=== PATIENT | female | born 2000 | race African-American/Black ===

== ENCOUNTER 2023-10-28 14:53 | Emergency (ER) | payer BC, OTHER, SELFPAY ==
[2023-10-28 14:55] VITALS: BP 122/71; PULSE 98; RESP 20; TEMP 36.2; O2SAT 100
--- NOTE | 2023-10-28 15:46 | ED.SKABFB ---
HPI - Skin/Abscess/Foreign Bdy General Chief complaint: Skin/Abscess/Foreign Body Stated complaint: eczema on face Time Seen by Provider: 10/28/23 15:07 Source: patient Mode of arrival: ambulatory Limitations: no limitations History of Present Illness HPI narrative: This is a 22 year old female that presents to the ER for eczema. Reports she woke up this morning with a flare on her face and is very uncomfortable and itchy. She sees a Motorboat Operator at [facility]. Is currently on Dupixent. No new soaps, lotions, detergents, or medications. Related Data Allergies Allergy/AdvReac Type Severity Reaction Status Date / Time No Known Allergies Allergy Verified 10/28/23 14:58 Review of Systems Review of Systems: CONSTITUTIONAL: Denies fever SKIN: Reports rash and itching. All systems reviewed & are unremarkable except as noted in HPI and below PMFSH Past Medical History Medical History (Updated 10/28/23 @ 16:12 by Valerie Cedillo PA-C) History of eczema Social History Social History (Updated 10/28/23 @ 16:12 by Valerie Cedillo PA-C) Substance use: never Exam Narrative: GENERAL: Well-appearing, well-nourished, and in no acute distress. HEAD: Normocephalic, atraumatic. EYES: EOMI. ENT: Mucous membranes moist. Oropharynx without tonsillar hypertrophy exudate or other lesions. NECK: Supple. No adenopathy or masses CHEST: No respiratory distress. HEART: Regular rate EXTREMITIES: Normal range of motion. No edema. SKIN: Warm, dry. Dry scaly rash to the face with mild inflammation NEURO: No focal deficits. Alert and oriented x3. PSYCH: Normal mood and affect Course Consultations Consultation #1: Spoke with patient's Motorboat Operator oncology technician, Dr. Qureshi, about patient. Recommends Elidel to the face and systemic antihistamines Date: 10/28/23 Vital Signs Vital signs: Vital Signs Temperature 97.2 F L 10/28/23 14:55 Pulse Rate 98 10/28/23 14:55 Respiratory Rate 20 10/28/23 14:55 Blood Pressure 122/71 10/28/23 14:55 Pulse Oximetry 100 10/28/23 14:55 Oxygen Delivery Room Air 10/28/23 14:55 Temperature 97.2 F L 10/28/23 14:55 Pulse Rate 98 10/28/23 14:55 Respiratory Rate 20 10/28/23 14:55 Blood Pressure 122/71 10/28/23 14:55 Pulse Oximetry 100 10/28/23 14:55 Oxygen Delivery Room Air 10/28/23 14:55 MDM - Skin/Abscess/Foreign Bdy MDM Narrative Medical decision making narrative: Patient presents to the ER for Eczema flare. Spoke with patient's Motorboat Operator oncology technician, Dr. Qureshi, about patient. Recommends Elidel to the face and systemic antihistamines. She is to follow up at her scheduled appointment next week for her injection. She was given warnings to return to the ER Differential Diagnosis Differential diagnosis: Likely urticaria, cellulitis and eczema Critical Care Time Critical Care Time Critical Care Time: No Discharge Plan Discharge Clinical Impression: Eczema Qualifiers: Eczema type: unspecified Qualified Code(s): L30.9 - Dermatitis, unspecified Patient Disposition: Home, Self-Care Condition: Stable Instructions: Eczema (ED) Additional Instructions: Return to the emergency department if you experience fever >101, trouble breathing, or any other symptoms that are concerning to you Take a Pepcid and Zyrtec daily. Benadryl as needed for severe itching. Apply Elidel as prescribed Follow-up with your Motorboat Operator. They recommended holding off on systemic steroids at this time and trying antihistamines and the Elidel first Prescriptions: New pimecrolimus [Elidel] 1 % cream 1 applic topical BID 7 Days Qty: 30 0RF Follow-up/Referrals: Joanne Dolan [Other]
[2023-10-28] MEDS: LORATADINE 10 MG TABLET PO (16:20)
[2023-10-28] MEDS: FAMOTIDINE 20 MG TABLET PO (16:20)
[2023-10-28] MEDS: diphenhydrAMINE HCl CAP 25 MG CAPSULE 50 MG PO (16:20)
== END 2023-10-28 16:54 | disposition home or self-care (01) ==
PROVIDERS: Emergency Provider Physician Assistant
DX: L30.9 Dermatitis, unspecified (principal)
CPT/HCPCS: 99283; A9270